=== PATIENT | female | born 2005 ===

== ENCOUNTER 2025-05-02 10:11 | Emergency (ER) | payer OTHER ==
[~2025-05-02] VITALS: Ht 152.4 cm; Wt 52.6 kg
[2025-05-02 10:26] VITALS: BP 95/58; O2SAT 99
[2025-05-02] MEDS ORDERED: SALINE MIST45 ML (11:20)
[2025-05-02] MEDS ORDERED: CORTISONE60 GM TOP (11:49)
[2025-05-02] MEDS ORDERED: DEXAMETHASONE SODIUM PHOSPHATE 4 MG/ML VIAL ONE (11:55)
[2025-05-02] MEDS ORDERED: DEXAMETHASONE SODIUM PHOSPHATE 4 MG/ML VIAL IM ONE (12:00)
== END 2025-05-02 12:12 | disposition home or self-care (01) ==
LOC: ER 10:11
DX: S80.872A Other superficial bite, left lower leg, initial encounter (principal); S80.871A Other superficial bite, right lower leg, initial encounter; W57.XXXA Bitten or stung by nonvenomous insect and other nonvenomous arthropods, initial encounter; Y93.89 Activity, other specified; Y92.89 Other specified places as the place of occurrence of the external cause; Y99.9 Unspecified external cause status; Z88.8 Allergy status to other drugs, medicaments and biological substances
CPT/HCPCS: 99282; J1100